=== PATIENT | female | born 1995 | race Caucasian/White ===

== ENCOUNTER 2016-09-04 16:44 | Emergency (ER) | payer MEDICAID ==
[~2016-09-04] VITALS: Ht 154.9 cm; Wt 50.0 kg
[2016-09-04 16:46] VITALS: BP 106/69; PULSE 90; RESP 16; TEMP 98.8; O2SAT 100
[2016-09-04] MEDS ORDERED: ONDANSETRON HCL 4 MG/2 ML VIAL IVP ONE (17:15)
--- NOTE | 2016-09-04 17:18 | PD ---
HPI Chief Complaint: Abdominal Pain Time Seen by Provider: 17:08 Travel History International Travel<30 days: No Contact w/Intl Traveler<30days: No Traveled to known affect area: No History of Present Illness HPI 20-year-old female currently 15 weeks 5 days based on ultrasound 3 weeks ago. She presents for evaluation of pelvic cramping. She reports that 1 week ago she was at work and a coworker actually turned with a box that was filled with cardboard and the corner of the box hit her suprapubic region. She reports that she developed cramping shortly thereafter. The next day she had 4 episodes of vomiting. She called her REAL ESTATE PROCESSOR and rest was recommended. She felt better but then today she developed some cramping again which prompted evaluation. She endorses some nausea with 1 episode of vomiting today. Denies any vaginal bleeding, fevers or chills, diarrhea or constipation. Denies dysuria, flank pain, hematuria. No other complaints. PFSH Past Medical History Medical History: Denies Significant Hx Diminished Hearing: No Tetanus Vaccination: < 5 Years Influenza Vaccination: No ?: LMP: : 3 Para: 2 Miscarriage: 0 : 0 Past Surgical History Surgical History: No Previous Surgery Social History Alcohol Use: No Tobacco Use: Yes (1/2 pack per day) Substance Use: No Allergies-Medications (Allergen,Severity, Reaction): Coded Allergies: No Known Allergies (Unverified , 09/04/16) Reported Meds & Prescriptions Reported Meds & Active Scripts Active Macrobid (Nitrofurantoin Monoh/Nitrofur Macro) 100 Mg Cap 100 Mg PO BID 7 Days Review of Systems Except as stated in HPI: all other systems reviewed are Neg Physical Exam Narrative GENERAL: Pleasant well-developed well-nourished female in no acute distress SKIN: Warm and dry. HEAD: Atraumatic. Normocephalic. EYES: Pupils equal and round. No scleral icterus. No injection or drainage. ENT: No nasal bleeding or discharge. Mucous membranes pink and moist. NECK: Trachea midline. No JVD. CARDIOVASCULAR: Regular rate and rhythm. No murmur appreciated. RESPIRATORY: No accessory muscle use. Clear to auscultation. Breath sounds equal bilaterally. GASTROINTESTINAL: Abdomen soft, mild suprapubic tenderness without guarding. MUSCULOSKELETAL: No obvious deformities. NEUROLOGICAL: Awake and alert. No obvious cranial nerve deficits. Motor grossly within normal limits. Normal speech. Data Data Last Documented VS Vital Signs Date Time Temp Pulse Resp B/P Pulse Ox O2 Delivery O2 Flow Rate FiO2 09/04/16 17:06 16 09/04/16 16:46 98.8 90 106/69 100 Room Air Orders Complete Blood Count With Diff (09/04/16 17:08) Comprehensive Metabolic Panel (09/04/16 17:08) Urinalysis - C+S If Indicated (09/04/16 17:08) Ondansetron Inj (Zofran Inj) (09/04/16 17:15) Ed Poc Ultrasound (09/04/16 ) Urine Culture (09/04/16 17:26) Labs Laboratory Tests Test 09/04/16 09/04/16 17:18 17:26 White Blood Count 10.6 TH/MM3 Red Blood Count 3.68 MIL/MM3 Hemoglobin 11.0 GM/DL Hematocrit 31.0 % Mean Corpuscular Volume 84.1 FL Mean Corpuscular Hemoglobin 29.9 PG Mean Corpuscular Hemoglobin 35.5 % Concent Red Cell Distribution Width 13.5 % Platelet Count 275 TH/MM3 Mean Platelet Volume 7.8 FL Neutrophils (%) (Auto) 67.5 % Lymphocytes (%) (Auto) 20.5 % Monocytes (%) (Auto) 7.4 % Eosinophils (%) (Auto) 4.2 % Basophils (%) (Auto) 0.4 % Neutrophils # (Auto) 7.2 TH/MM3 Lymphocytes # (Auto) 2.2 TH/MM3 Monocytes # (Auto) 0.8 TH/MM3 Eosinophils # (Auto) 0.4 TH/MM3 Basophils # (Auto) 0.0 TH/MM3 CBC Comment DIFF FINAL Differential Comment Sodium Level 139 MEQ/L Potassium Level 4.1 MEQ/L Chloride Level 106 MEQ/L Carbon Dioxide Level 24.1 MEQ/L Anion Gap 9 MEQ/L Blood Urea Nitrogen 7 MG/DL Creatinine 0.44 MG/DL Estimat Glomerular Filtration 179 ML/MIN Rate Random Glucose 82 MG/DL Calcium Level 8.9 MG/DL Total Bilirubin 0.1 MG/DL Aspartate Amino Transf 11 U/L (AST/SGOT) Alanine Aminotransferase 14 U/L (ALT/SGPT) Alkaline Phosphatase 71 U/L Total Protein 7.0 GM/DL Albumin 3.6 GM/DL Urine Color YELLOW Urine Turbidity HAZY Urine pH 5.5 Urine Specific [place] 1.013 Urine Protein NEG mg/dL Urine Glucose (UA) NEG mg/dL Urine Ketones NEG mg/dL Urine Occult Blood SMALL Urine Nitrite NEG Urine Bilirubin NEG Urine Urobilinogen LESS THAN 2.0 MG/DL Urine Leukocyte Esterase LARGE Urine RBC 7 /hpf Urine WBC 11 /hpf Urine Squamous Epithelial 25 /hpf Cells Urine Bacteria RARE /hpf Urine Mucus FEW /lpf Microscopic Urinalysis Comment CULTURE INDICATED MDM Medical Decision Making Medical Screen Exam Complete: Yes Emergency Medical Condition: Yes Medical Record Reviewed: Yes Differential Diagnosis Round ligament pain, placental abruption, abdominal contusion, cystitis, abdominal wall hematoma Narrative Course 20-year-old female with pelvic cramping, 15 weeks 5 days based on ultrasound. Physical examination is reassuring, minimal suprapubic discomfort to palpation, well-appearing G urine assured with bedside ultrasound, heart tones 150. Positive movements on ultrasound. The patient was given Zofran for nausea. Basic lab work and urinalysis were ordered and urinalysis reveals some bacteria, 11 WBCs with some contamination as there are 25 squamous epithelial cells. The patient will be treated for bacteriuria in with Macrobid. She is stable for discharge and outpatient follow-up with her REAL ESTATE PROCESSOR. She has an appointment in 2 days with her REAL ESTATE PROCESSOR. Diagnosis Primary Impression: Abdominal pain Qualified Code: R10.30 - Lower abdominal pain Additional Impression: Asymptomatic bacteriuria during Additional Instructions: Medication as prescribed. Follow-up with your REAL ESTATE PROCESSOR. Return for new or worsening symptoms. Med/Other Pt SpecificInfo: Prescription(s) given Scripts Nitrofurantoin Monohydrate Macrocrystals (Macrobid)100 Mg [id number] Mg PO BID 7 Days Ref 0 Prov:Priya Strong MD 09/04/16 Disposition: 01 DISCHARGE HOME Condition: Stable Dao [place] Sep 04, 2016 17:18
--- NOTE | 2016-09-04 17:20 | PD ---
Physical Exam Date Seen by Provider: Sep 04, 2016 Narrative I, Dr. Strong, have reviewed the advance practice practitioner's documentation and am in agreement, met with the patient face to face, made the diagnosis, and the medical decision making was done by me. *My assessment and Findings: This patient is about 15-1/2 weeks since with some cramping. Emergency Department Pelvic ultrasound was performed with patient consent. The curvilinear probe was used in the transverse and sagittal views within the suprapubic region revealing + intrauterine . heart rate was 150. Data Data Last Documented VS Vital Signs Date Time Temp Pulse Resp B/P Pulse Ox O2 Delivery O2 Flow Rate FiO2 09/04/16 17:06 16 09/04/16 16:46 98.8 90 106/69 100 Room Air Orders Complete Blood Count With Diff (09/04/16 17:08) Comprehensive Metabolic Panel (09/04/16 17:08) Urinalysis - C+S If Indicated (09/04/16 17:08) Ondansetron Inj (Zofran Inj) (09/04/16 17:15) Ed Poc Ultrasound (09/04/16 ) MDM Supervised Visit with JOSIANE: Yes Scripts No Active Prescriptions or Reported Meds Priya Strong MD Sep 04, 2016 17:20
[2016-09-04 17:37] LABS: AUTOMATED NEUTROPHIL # 7.2 TH/MM3 (1.8-7.7); BASOPHIL % 0.4 % (0.0-2.0); EOSINOPHIL # 0.4 TH/MM3 (0-0.4); EOSINOPHIL % 4.2 % (0.0-4.0); HEMO FLAGS DIFF FINAL; LYMPH % 20.5 % (9.0-44.0); LYMPHOCYTE # 2.2 TH/MM3 (1.0-4.8); MEAN CELL VOLUME 84.1 FL (80.0-100.0); MEAN CORPUSCULAR HEMOGLOBIN 29.9 PG (27.0-34.0); MEAN CORPUSCULAR HGB CONC 35.5 % (32.0-36.0); MONO % 7.4 % (0.0-8.0); NEUT % 67.5 % (16.0-70.0); PLATELET COUNT 275 TH/MM3 (150-450); RED BLOOD COUNT 3.68 MIL/MM3 (4.00-5.30); RED CELL DISTRIBUTION WIDTH 13.5 % (11.6-17.2); WHITE BLOOD COUNT 10.6 TH/MM3 (4.0-11.0)
[2016-09-04 17:41] LABS: BACTERIA, URINE RARE /hpf; BLOOD, URINE SMALL (NEG); COMMENT (UR) CULTURE INDICATED; CULTURE IF INDICATED CULTURE INDICATED; GLUCOSE,URINE NEG (NEG); KETONE, URINE NEG (NEG); MUCUS URINE FEW /lpf (OCC); NITRITE,URINE NEG (NEG); PH, URINE 5.5 (5.0-8.5); SQUAMOUS EPITHELIAL CELL URINE 25 /hpf (0-5); URINE COLOR YELLOW (YELLW/STRAW)
[2016-09-04 17:54] LABS: ALT (GPT) 14 U/L (10-53); ANION GAP 9 MEQ/L (5-15); AST (GOT) 11 U/L (15-37); BICARBONATE 24.1 MEQ/L (21.0-32.0); BLOOD UREA NITROGEN 7 MG/DL (7-18); CHLORIDE 106 MEQ/L (98-107); GLOMERULAR FILTRATION RATE 179 ML/MIN (>89); POTASSIUM 4.1 MEQ/L (3.5-5.1); SODIUM (NA) 139 MEQ/L (136-145)
[2016-09-04 17:56] LABS: ALKALINE PHOSPHATASE 71 U/L (45-117); TOTAL BILIRUBIN ADULT 0.1 MG/DL (0.2-1.0)
[2016-09-04] MEDS ORDERED: MACR100C2 PO (17:56)
== END 2016-09-04 18:28 | disposition home or self-care (01) ==
LOC: NEPE 16:44
DX: O23.31 Infections of other parts of urinary tract in pregnancy, first trimester (principal); O26.891 Other specified pregnancy related conditions, first trimester; B96.89 Other specified bacterial agents as the cause of diseases classified elsewhere; Z3A.15 15 weeks gestation of pregnancy
CPT/HCPCS: 80053; 81001; 85025; 87086; 96374; 99284; J2405

== ENCOUNTER → 2016-12-02 | Outpatient (CLI) | payer MEDICAID ==
[~2016-12-02] MED LIST: DOCO200C PO; IBUP-232 PO; MACR100C2 PO
== END ==
LOC: CLAB 10:05
PROVIDERS: ATTEND Obstetrics & Gynecology
DX: O36.0130 Maternal care for anti-D [Rh] antibodies, third trimester, not applicable or unspecified (principal); Z67.41 Type O blood, Rh negative
CPT/HCPCS: 36415; 86850; 86900; 86901; 90384; 96372; J2790

== ENCOUNTER 2016-12-13 00:39 | Emergency (ER) | payer MEDICAID ==
[~2016-12-13] VITALS: Ht 154.9 cm; Wt 60.0 kg
[~2016-12-13 00:39] MED LIST changes: -DOCO200C PO; -IBUP-232 PO
[2016-12-13 00:43] VITALS: BP 117/88; PULSE 93; RESP 16; TEMP 98; O2SAT 100
[2016-12-13] MEDS ORDERED: DOCO200C PO (01:31)
[2016-12-13 02:07] LABS: AUTOMATED NEUTROPHIL # 8.6 TH/MM3 (1.8-7.7); BASOPHIL # 0.1 TH/MM3 (0-0.2); BASOPHIL % 0.6 % (0.0-2.0); EOSINOPHIL # 0.5 TH/MM3 (0-0.4); EOSINOPHIL % 3.5 % (0.0-4.0); HEMATOCRIT 31.9 % (35.0-46.0); HEMO FLAGS DIFF FINAL; LYMPH % 23.3 % (9.0-44.0); LYMPHOCYTE # 3.1 TH/MM3 (1.0-4.8); MEAN CELL VOLUME 87.1 FL (80.0-100.0); MEAN CORPUSCULAR HEMOGLOBIN 29.7 PG (27.0-34.0); MEAN CORPUSCULAR HGB CONC 34.1 % (32.0-36.0); MONO % 8.1 % (0.0-8.0); NEUT % 64.5 % (16.0-70.0); PLATELET COUNT 255 TH/MM3 (150-450); RED BLOOD COUNT 3.66 MIL/MM3 (4.00-5.30); RED CELL DISTRIBUTION WIDTH 13.1 % (11.6-17.2); WHITE BLOOD COUNT 13.3 TH/MM3 (4.0-11.0)
[2016-12-13 02:32] LABS: BACTERIA, URINE OCC /hpf; BLOOD, URINE TRACE (NEG); COMMENT (UR) CULT NOT INDICATED; CULTURE IF INDICATED CULT NOT INDICATED; GLUCOSE,URINE NEG (NEG); KETONE, URINE NEG (NEG); MUCUS URINE MOD /lpf (OCC); NITRITE,URINE NEG (NEG); RENAL EPITHELIAL CELLS <1 /hpf; SQUAMOUS EPITHELIAL CELL URINE 18 /hpf (0-5); TRANSITIONAL EPI CELLS, URINE <1 /hpf; URINE COLOR YELLOW (YELLW/STRAW)
[2016-12-13 02:38] LABS: BICARBONATE 24.4 MEQ/L (21.0-32.0); POTASSIUM 3.6 MEQ/L (3.5-5.1)
--- NOTE | 2016-12-13 02:49 | PD ---
HPI Chief Complaint: Pain: Acute or Chronic Time Seen by Provider: 01:45 Travel History International Travel<30 days: No Contact w/Intl Traveler<30days: No Traveled to known affect area: No History of Present Illness HPI The patient is a 21 year old female at 30 weeks gestation who presents to the [facility] emergency department with a history of right calf pain that she reports began when she awakened on Monday night with a charley horse. She reports that the pain never went away. She reports that just touching the area hurts her right calf. She denies having any swelling or redness associated with this. She denies having any prior history of blood clots. She does however unfortunately smoke a half a pack of cigarettes per day. The patient reports that she has been feeling the baby move well. Her DIRECTOR BUSINESS DEVELOPMENT is at the [employer]. Review of systems, the patient denies any recent fevers, cough, congestion, neck pain, chest pain, shortness of breath, abdominal pain, vomiting, diarrhea, urinary symptoms, vaginal bleeding, or neurologic symptoms. [facility] Past Medical History Narrative Medical The patient's past medical history is significant for none. Medical History: Denies Significant Hx Diminished Hearing: No ?: : 3 Para: 2 Miscarriage: 0 : 0 Past Surgical History Narrative Surgical The patient's past surgical history is reportedly none. Surgical History: No Previous Surgery Social History Alcohol Use: No Tobacco Use: Yes (1/2 pack per day) Substance Use: No Allergies-Medications (Allergen,Severity, Reaction): Coded Allergies: No Known Allergies (Unverified , 12/13/16) Reported Meds & Prescriptions Reported Meds & Active Scripts Active Reported Dha (Docosahexaenoic Acid) 200 Mg Cap PO DAILY Review of Systems Except as stated in HPI: all other systems reviewed are Neg General / Constitutional: No: Fever Eyes: No: Visual changes HENT: No: Headaches Cardiovascular: No: Chest Pain or Discomfort Respiratory: No: Shortness of Breath Gastrointestinal: No: Abdominal Pain Genitourinary: No: Dysuria Musculoskeletal: Positive: Myalgias, Pain Skin: No Rash Neurologic: No: Weakness Psychiatric: No: Depression Endocrine: No: Polydipsia Hematologic/Lymphatic: No: Easy Bruising Physical Exam Narrative General: The patient is a well-developed well-nourished female in no acute distress. Head and Neck exam: Head is normocephalic atraumatic. Eyes: EOMI, pupils are equal round and reactive to light. Nose: Midline septum with pink mucous membranes Mouth: Dentition unremarkable. Moist mucus membranes. Posterior oropharynx is not erythematous. No tonsillar hypertrophy. Uvula midline. Airway patent. Neck: No palpable lymphadenopathy. No nuchal rigidity. No thyromegaly. Cardiovascular: Regular rate and rhythm without murmurs, gallops, or rubs. Lungs: Clear to auscultation bilaterally. No wheezes, rhonchi, or rales. Abdomen: Soft, distention noted related to with the fundus well above the umbilicus without any tenderness on palpation of all 4 quadrants of the abdomen , no palpable contractions. No guarding, rebound, or rigidity. Normal bowel sounds are audible Extremities: No clubbing, cyanosis, or edema. 2+ pulses in all 4 extremities. The patient has right calf tenderness on palpation. The patient has a positive Homans sign on the right side. She has less than 3 second capillary refill of her digits in bilateral feet. Back: No spinous process tenderness to palpation. No costovertebral angle tenderness to palpation. Neurologic Exam: Grossly nonfocal. Skin Exam: No rash noted. Intact skin that is warm and dry. Data Data Last Documented VS Vital Signs Date Time Temp Pulse Resp B/P Pulse Ox O2 Delivery O2 Flow Rate FiO2 12/13/16 01:24 93 16 12/13/16 00:43 98.0 117/88 100 Room Air Orders Us Leg Venous Doppler (12/13/16 01:45) Complete Blood Count With Diff (12/13/16:46) Basic Metabolic Panel (Bmp) (12/13/16:46) Urinalysis - C+S If Indicated (12/13/16:46) Magnesium (Mg) (12/13/16:46) Iv Access Insert/Monitor (12/13/16:46) Ecg Monitoring (12/13/16:46) Oximetry (12/13/16:46) Labs Laboratory Tests Test 12/13/16 02:00 White Blood Count 13.3 TH/MM3 Red Blood Count 3.66 MIL/MM3 Hemoglobin 10.9 GM/DL Hematocrit 31.9 % Mean Corpuscular Volume 87.1 FL Mean Corpuscular Hemoglobin 29.7 PG Mean Corpuscular Hemoglobin 34.1 % Concent Red Cell Distribution Width 13.1 % Platelet Count 255 TH/MM3 Mean Platelet Volume 7.9 FL Neutrophils (%) (Auto) 64.5 % Lymphocytes (%) (Auto) 23.3 % Monocytes (%) (Auto) 8.1 % Eosinophils (%) (Auto) 3.5 % Basophils (%) (Auto) 0.6 % Neutrophils # (Auto) 8.6 TH/MM3 Lymphocytes # (Auto) 3.1 TH/MM3 Monocytes # (Auto) 1.1 TH/MM3 Eosinophils # (Auto) 0.5 TH/MM3 Basophils # (Auto) 0.1 TH/MM3 CBC Comment DIFF FINAL Differential Comment Urine Color YELLOW Urine Turbidity HAZY Urine pH 6.0 Urine Specific [place] 1.022 Urine Protein TRACE mg/dL Urine Glucose (UA) NEG mg/dL Urine Ketones NEG mg/dL Urine Occult Blood TRACE Urine Nitrite NEG Urine Bilirubin NEG Urine Urobilinogen LESS THAN 2.0 MG/DL Urine Leukocyte Esterase LARGE Urine RBC 8 /hpf Urine WBC 8 /hpf Urine Squamous Epithelial 18 /hpf Cells Urine Transitional Epithelial <1 /hpf Cells Urine Renal Epithelial Cells <1 /hpf Urine Bacteria OCC /hpf Urine Mucus MOD /lpf Microscopic Urinalysis Comment CULT NOT INDICATED Sodium Level 140 MEQ/L Potassium Level 3.6 MEQ/L Chloride Level 106 MEQ/L Carbon Dioxide Level 24.4 MEQ/L Anion Gap 10 MEQ/L Blood Urea Nitrogen 4 MG/DL Creatinine 0.42 MG/DL Estimat Glomerular Filtration 187 ML/MIN Rate Random Glucose 79 MG/DL Calcium Level 8.6 MG/DL Magnesium Level 2.0 MG/DL [facility] Medical Decision Making Medical Screen Exam Complete: Yes Emergency Medical Condition: Yes Medical Record Reviewed: Yes Interpretation(s) Last Impressions Lower Extremity Ultrasound 12/13/16 0145 Signed Impressions: Service Date/Time: Tuesday, December 13, 2016 02:07 - CONCLUSION: No DVT in the right leg. Joseph Diaz MD Differential Diagnosis Musculoskeletal strain, versus DVT, versus Achilles tendon rupture Narrative Course During the course of the patients emergency department visit, the patients history, examination, and differential diagnosis were reviewed with the patient. The patient had IV access obtained and blood work sent for analysis. The patient was placed on a behavioral health care manager with oximetry and blood pressure monitoring. An ultrasound of the right lower extremity was ordered. The patient was offered Tylenol for pain, however she reports that she is comfortable at this time. The patients laboratory studies were reviewed and remarkable for a white count of 13.3, hemoglobin 10.9, platelets 255 with 8.1 monocytes, BMP is unremarkable , urinalysis shows large leukocyte esterase 8 rbc's wbc's 8, 18 squamous epithelial cells, occasional bacteria. The patient will be treated for bacteriuria with Macrobid. Radiology studies were reviewed and remarkable for an ultrasound that reveals no evidence of DVT. The patient is instructed regarding the importance of following up with her OB/ [employer] for reexamination. The patient's symptoms are likely related to muscle strain in the calf related to a spasm. The patient is resting comfortably and feels better, is alert and in no distress. The patients results and examination findings were discussed with the patient. The repeat examination is unremarkable and benign. The history, exam, diagnostic testing, and current condition do not suggest any significant pathology to warrant further testing, continued ED treatment, admission, or surgical evaluation at this point. The vital signs have been stable. The patient does not have uncontrollable pain, intractable vomiting, or other significant symptoms. The patient's condition is stable and appropriate for discharge. The patient will pursue further outpatient evaluation with a primary care physician or other designated or consulting physician as indicated in the discharge instructions. The patient expressed understanding and was agreeable with this plan. Diagnosis Primary Impression: Asymptomatic bacteriuria during Additional Impressions: Pain of right calf Muscle strain Referrals: Housekeeping Room Inspector 3 days Patient Instructions: General Instructions, Muscle Strain (ED), Urinary Tract Infection in (ED) Additional Instructions: The patient was instructed to take Tylenol as needed for discomfort as written on the package. Med/Other Pt SpecificInfo: Prescription(s) given Scripts Nitrofurantoin Monohydrate Macrocrystals (Macrobid)100 Mg [id number] Mg PO BID #20 CAP Ref 0 Prov:Paulette Cannon MD 12/13/16 Disposition: 01 DISCHARGE HOME Condition: Stable Paulette Cannon MD Dec 13, 2016 02:49
--- NOTE | 2016-12-13 03:04 | RADRPT ---
EXAM DATE/TIME: 12/13/2016 02:07 [place] COMPARISON: No previous studies available for comparison. INDICATIONS : Right leg pain. MEDICAL HISTORY : Right leg pain. SURGICAL HISTORY : None. ENCOUNTER: Initial ACUITY: 2 day PAIN SCORE: 7/10 LOCATION: Right leg. TECHNIQUE: Venous ultrasound of the leg was performed from the inguinal ligament to the proximal calf. Real-obdulio e, color Doppler and spectral tracing, compression and augmentation techniques were used. FINDINGS: There is normal compressibility of the deep venous system from the inguinal region to the proximal ca lf. No echogenic clot is seen in the lumen of the common femoral, femoral, popliteal, and posterior tibial veins. There is a normal response of the venous system to proximal and distal augmentation an d respiration. CONCLUSION: No DVT in the right leg. Joseph Diaz MD on December 13, 2016 at 3:03 Board Certified Radiologist. This report was verified electronically.
[2016-12-13] MEDS ORDERED: MACR100C2 PO (04:13)
== END 2016-12-13 06:01 | disposition home or self-care (01) ==
LOC: NEPC 00:39
DX: O26.893 Other specified pregnancy related conditions, third trimester (principal); R82.71 Bacteriuria; M79.661 Pain in right lower leg; F17.210 Nicotine dependence, cigarettes, uncomplicated
CPT/HCPCS: 80048; 81001; 83735; 85025; 93971

== ENCOUNTER → 2016-12-20 | Outpatient (CLI) | payer MEDICAID ==
[~2016-12-20] MED LIST changes: +DOCO200C PO; +IBUP-232 PO
== END ==
LOC: HPND 12:41
PROVIDERS: ATTEND Obstetrics & Gynecology
DX: O35.1XX0 Maternal care for (suspected) chromosomal abnormality in fetus, not applicable or unspecified (principal)
CPT/HCPCS: 76811

== ENCOUNTER → 2017-01-20 | Outpatient (CLI) | payer MEDICAID | LOC: HPND 09:52 | PROVIDERS: ATTEND Obstetrics & Gynecology | DX: O35.8XX0 Maternal care for other (suspected) fetal abnormality and damage, not applicable or unspecified (principal); O36.5920 Maternal care for other known or suspected poor fetal growth, second trimester, not applicable or unspecified; Z3A.35 35 weeks gestation of pregnancy | CPT/HCPCS: 76816 ==

== ENCOUNTER 2017-02-06 15:57 | Emergency (ER) | payer MEDICAID ==
[~2017-02-06] VITALS: Ht 154.9 cm; Wt 57.6 kg
[~2017-02-06 15:57] MED LIST changes: -IBUP-232 PO
--- NOTE | 2017-02-06 16:48 | PD ---
HPI Chief Complaint contractions Date Seen: Feb 06, 2017 Time Seen: 16:40 Travel History International Travel<30 Days: No Contact w/Intl Traveler<30Days: No Known Affected Area: No History of Present Illness HPI Pt is a 21 y/o with iup at 38 wks who presents with c/o contractions. PT states that around 2:30 pm her abdomen got tight and she feels like it stayed tight for a long time. She is also intermittently feeling sharp suprapubic pain , 4-5x per hour. Pt denies vb, lof. +FM Para: 2 : 3 History Past Medical History Medical History: Denies Significant Hx Obstetric History Obstetric History OB: 2010 FTSVD 2013 FTSVD Past Surgical History Surgical History: No Previous Surgery Family History Family History: Negative Social History Alcohol Use: No Tobacco Use: Yes (1/2 ppd) Substance Abuse: No Allergies-Medications (Allergen,Severity, Reaction): Coded Allergies: No Known Allergies (Unverified , 12/13/16) Home Meds Reported Medications Docosahexaenoic Acid ( Dha)200 Mg Cap Po Daily 12/13/16 Discontinued Scripts Nitrofurantoin Monohydrate Macrocrystals (Macrobid)100 Mg [id number] Mg PO BID #20 CAP Ref 0 Prov:Paulette Cannon MD 12/13/16 Review of Systems General / Constitutional: No: Fever, Weight Gain, Weight Loss, Chills, Other Eyes: No: Diploplia, Blurred Vision, Visual changes, Pain, Photophobia, Other HENT: No: Headaches, Vertigo, Dental Difficulties, Lightheadedness, Other Cardiovascular: No: Irregular Rhythm, Chest Pain or Discomfort, Palpitations, Tachycardia, Syncope, Varicosities, Edema, Cyanosis, Other Respiratory: No: Cough, Short of Breath, Wheezing, Other Gastrointestinal: No: Nausea, Vomiting, Diarrhea, Abdominal Pain, Hematemesis, Hematochezia, Constipation, Changes in Bowel Habits, Indigestion, Loss of Appetite, Other Genitourinary: No: Urgency, Frequency, Dysuria, Nocturia, Hematuria, Decreased Urinary Output, Oliguria, Hesitancy, Dribbling, Incontinence, Pelvic Pain, Dyspareunia, Discharge, Menorrhagia, Vaginal Bleeding, Other Musculoskeletal: No: Limited ROM, Weakness, Cramping, Edema, Pain, Other Skin: No Rash, No Itching, No Dryness, No Lumps, No Change in Pigmentation, No Change in Nails, No Alopecia, No Lesions, No Breast Lumps, No Breast Tenderness , No Breast Swelling, No Other Neurologic: No: Weakness, Dizziness, Syncope, Focal Abnormalities, Coordination Problem, Headache, Slurred Speech, Seizures, Other Psychiatric: No: Anxiety, Depression, Suicidal Ideations, Disorder of Thought, Mood Disorder, Substance Abuse, Homicidal Ideation, Other Endocrine: No: Heat Intolerance, Cold Intolerance, Polydipsia, Polyuria, Other Hematologic/Lymphatic: No Easy Bruising, No Lymph Node Enlargement, No Other Physical Exam 107/69, 93, 18, 98.1 Narrative GENERAL: Well-nourished, well-developed patient. SKIN: Warm and dry. HEAD: Normocephalic and atraumatic. EYES: No scleral icterus. No injection or drainage. ENT: No nasal drainage noted. Mucous membranes pink. Airway patent. NECK: Supple, trachea midline. No JVD. CARDIOVASCULAR: Regular rate and rhythm without murmurs, gallops, or rubs. RESPIRATORY: Breath sounds equal bilaterally. No accessory muscle use. ABDOMEN/GI: Abdomen soft, non-tender, bowel sounds present, no rebound, no guarding Gravid GENITOURINARY: External Genitalia: intact and normal in appearance BUS glands: [wnl] Cervix: posterior Dilatation: 1 Effacement: 25 Station: -3 Presentation: [facility] Membranes: intact Uterine Contractions: q 3 (small) FHT's: Category: 1 Baseline: 130s Reactive: yes Variability: mod Decels: no EXTREMITIES: No cyanosis or edema. BACK: Nontender without obvious deformity. No CVA tenderness. NEUROLOGICAL: Awake and alert. Motor and sensory grossly within normal limits. Five out of 5 muscle strength in all muscle groups. Normal speech. Data Data Vital Signs Reviewed: Yes MDM Medical Record Reviewed: Yes Narrative Course / MDM 21 y/o with IUP at 38 wks who presents for evaluation of labor not in active labor at this time labor precautions/fkc reviewed Diagnosis Diagnosis: Primary Impression: 38 weeks gestation of Additional Impression: False labor after 37 completed weeks of gestation Disposition: 01 DISCHARGE HOME Condition: Stable Riya Waters MD Feb 06, 2017 16:48
== END 2017-02-06 17:18 | disposition home or self-care (01) ==
LOC: HOBED 15:57
DX: O47.9 False labor, unspecified (principal); F17.210 Nicotine dependence, cigarettes, uncomplicated; Z3A.38 38 weeks gestation of pregnancy
CPT/HCPCS: 99282

== ENCOUNTER 2017-02-12 17:57 | Inpatient (IN) | payer MEDICAID ==
[~2017-02-12 17:57] MED LIST changes: -MACR100C2 PO
[2017-02-12 18:15] VITALS: RESP 18; TEMP 98
[2017-02-12] MEDS ORDERED: LIDOCAINE HCL 1% 50 ML VIAL I-DERMAL PRN (18:30)
[2017-02-12] MEDS ORDERED: LIDOCAINE HCL 1% 50 ML VIAL INFIL PRN (18:30)
[2017-02-12] MEDS ORDERED: MINERAL OIL 10 ML VIAL TOPICAL PRN (18:30)
[2017-02-12] MEDS ORDERED: LACTATED RINGER'S 1000 ML BOLUS IV PRN (18:30)
[2017-02-12] MEDS ORDERED: DINOPROSTONE 10 MG INSERT - REMOVE AT 0600 VAGINAL ONE (18:30)
[2017-02-12] MEDS ORDERED: OXYTOCIN 30 UNITS 500ML PREMIX IV ONE (18:30)
[2017-02-12] MEDS ORDERED: CITRIC ACID-SODIUM CITRATE LIQ 30 ML UDC PO SCH (18:30)
[2017-02-12] MEDS ORDERED: NS 500 ML BOLUS IV PRN (18:30)
[2017-02-12] MEDS ORDERED: NS 1000 ML IV PRN (18:30)
[2017-02-12] MEDS: LACTATED RINGER'S 1000 ML IV SCH (18:36)
[2017-02-12 18:48] LABS: AUTOMATED NEUTROPHIL # 10.2 TH/MM3 (1.8-7.7); BASOPHIL # 0.1 TH/MM3 (0-0.2); BASOPHIL % 0.8 % (0.0-2.0); EOSINOPHIL # 0.2 TH/MM3 (0-0.4); EOSINOPHIL % 1.4 % (0.0-4.0); HEMATOCRIT 29.8 % (35.0-46.0); HEMO FLAGS DIFF FINAL; LYMPH % 16.1 % (9.0-44.0); LYMPHOCYTE # 2.3 TH/MM3 (1.0-4.8); MEAN CELL VOLUME 86.4 FL (80.0-100.0); MEAN CORPUSCULAR HEMOGLOBIN 28.9 PG (27.0-34.0); MEAN CORPUSCULAR HGB CONC 33.4 % (32.0-36.0); MONO % 8.8 % (0.0-8.0); NEUT % 72.9 % (16.0-70.0); PLATELET COUNT 274 TH/MM3 (150-450); RED BLOOD COUNT 3.45 MIL/MM3 (4.00-5.30)
[2017-02-12 19:01] VITALS: BP 108/65; PULSE 77
[2017-02-12 19:01] LABS: BACTERIA, URINE RARE /hpf; BLOOD, URINE NEG (NEG); COMMENT (UR) CULT NOT INDICATED; CULTURE IF INDICATED CULT NOT INDICATED; GLUCOSE,URINE NEG (NEG); KETONE, URINE NEG (NEG); NITRITE,URINE NEG (NEG); SQUAMOUS EPITHELIAL CELL URINE 4 /hpf (0-5); URINE COLOR LIGHT-YELLOW (YELLW/STRAW)
[2017-02-12 19:15] VITALS: RESP 18; TEMP 97.6
[2017-02-12 23:25] VITALS: BP 101/44; PULSE 91
[2017-02-12 23:30] VITALS: RESP 18; TEMP 98.5
[2017-02-13 03:33] VITALS: BP 119/63; PULSE 76
[2017-02-13 03:45] VITALS: RESP 18; TEMP 98.1
--- NOTE | 2017-02-13 09:09 | HHI.HP ---
HPI Chief Complaint iol for iugr Date Seen: Feb 13, 2017 Travel History International Travel<30 Days: No Contact w/Intl Traveler<30Days: No Known Affected Area: No History of Present Illness HPI 21 yo with iup at 39 wk admitted for iol for iugr, efw under 10% and AC under 2.5%. She had nl dopplers, BPP and NST in clinic. She received cervidil overnight. She now has ctx q 3-5 min. No lof, min bloody show. Does not want an epidural. Para: 2 : 3 History Past Medical History Narrative Medical Asthma Obstetric History Obstetric History 2 ftsvd Social History Alcohol Use: No Tobacco Use: Yes Substance Abuse: No Allergies-Medications (Allergen,Severity, Reaction): Coded Allergies: No Known Allergies (Unverified , 12/13/16) Home Meds Reported Medications Docosahexaenoic Acid ( Dha)200 Mg Cap Po Daily 12/13/16 Discontinued Scripts Nitrofurantoin Monohydrate Macrocrystals (Macrobid)100 Mg Aal668 Mg PO BID #20 CAP Ref 0 Prov:Paulette Cannon MD 12/13/16 Review of Systems General / Constitutional: No: Fever, Weight Gain, Chills, Other Eyes: No: Diploplia, Blurred Vision, Visual changes, Pain, Photophobia HENT: No: Headaches, Vertigo, Lightheadedness Cardiovascular: No: Irregular Rhythm, Chest Pain or Discomfort, Palpitations, Tachycardia, Syncope, Varicosities, Edema, Cyanosis Respiratory: No: Cough, Short of Breath, Other Gastrointestinal: No: Nausea, Vomiting, Diarrhea Genitourinary: No: Decreased Urinary Output, Oliguria Musculoskeletal: No: Limited ROM, Weakness, Cramping, Edema, Pain Skin: No Rash, No Itching, No Dryness, No Lumps, No Change in Pigmentation, No Change in Nails, No Alopecia, No Lesions Neurologic: No: Weakness, Dizziness, Syncope, Focal Abnormalities, Coordination Problem, Headache, Slurred Speech, Seizures Psychiatric: No: Depression, Suicidal Ideations, Homicidal Ideation Endocrine: No: Heat Intolerance, Cold Intolerance, Polydipsia, Polyuria, Other Physical Exam Vital Signs Date Time Temp Pulse Resp B/P Pulse Ox O2 Delivery O2 Flow Rate FiO2 02/13/17 03:45 18 02/13/17 03:45 98.1 02/13/17 03:33 76 119/63 02/12/17 23:30 98.5 18 02/12/17 23:25 91 101/44 02/12/17 19:15 18 02/12/17 19:15 97.6 02/12/17 19:01 77 108/65 02/12/17 18:15 98.0 18 Narrative GENERAL: Well-nourished, well-developed patient. SKIN: Warm and dry. HEAD: Normocephalic and atraumatic. EYES: No scleral icterus. No injection or drainage. ENT: No nasal drainage noted. Mucous membranes pink. Airway patent. NECK: Supple, trachea midline. No JVD. CARDIOVASCULAR: Regular rate and rhythm without murmurs, gallops, or rubs. RESPIRATORY: Breath sounds equal bilaterally. No accessory muscle use.. ABDOMEN/GI: Abdomen soft, non-tender, bowel sounds present, no rebound, no guarding Gravid to 36 weeks size Fundal Height: [-] GENITOURINARY: External Genitalia: intact and normal in appearance BUS glands: [-] Cervix: 3/50/-2, post medium consistency, AROM attempted, min fluid, pt not very tolerant of exam Presentation:ceph Membranes: Ruptured, min fluid Uterine Contractions:3-5 min FHT's: Category: I Baseline:130 Reactive: [-] Variability:mod Decels: [-] EXTREMITIES: No cyanosis or edema. BACK: Nontender without obvious deformity. No CVA tenderness. NEUROLOGICAL: Awake and alert. Motor and sensory grossly within normal limits. Five out of 5 muscle strength in all muscle groups. Normal speech. Data Data Vital Signs Reviewed: Yes Orders Admit To Inpatient (02/12/17 ) Diet Liquid (02/12/17 Dinner) Activity Oob Ad Marlyn (02/12/17 18:18) ^ Labor Induction (02/12/17 18:18) Lactated Ringer's 1000 Ml Inj (Lr 1000 M (02/12/17 18:30) Lactated Ringer's 1000 Ml Inj (Lr 1000 M (02/12/17 18:30) Sodium Chlorid 0.9% 500 Ml Inj (Ns 500 M (02/12/17 18:30) Sodium Chlor 0.9% 1000 Ml Inj (Ns 1000 M (02/12/17 18:30) Lidocaine 1% Inj (50 Ml) (Xylocaine 1% I (02/12/17 18:30) Citric Acid-Sodium Citrate Liq (Bicitra (02/12/17 18:30) Fentanyl Inj (Fentanyl Inj) (02/12/17 18:30) Fentanyl Inj (Fentanyl Inj) (02/12/17 18:30) Oxytocin 30 Units-500ml Premix (Pitocin (02/12/17 18:30) Lidocaine 1% Inj (50 Ml) (Xylocaine 1% I (02/12/17 18:30) Light Mineral Oil (Muri-Lube Oil) (02/12/17 18:30) Admit To Inpatient (02/12/17 ) Code Status (02/12/17:20) Admit To Inpatient (02/12/17 ) Vital Signs (Adult) .Per protocol (02/12/17 18:20) Heart (02/12/17 18:20) Amnioinfusion (02/12/17 18:20) Urinary Catheter Management .ONCE (02/12/17 18:20) Complete Blood Count With Diff (02/12/17 18:20) Hold Clot (02/12/17 18:20) Abo/Rh Blood Type (02/12/17:20) Urinalysis - C+S If Indicated (02/12/17 18:20) Resp Oxygen Non Rebreathe Mask (02/12/17 ) ^ Epidural / Intrathecal Infus (02/12/17 18:20) Specimen To Be Collected PRN (02/12/17 18:20) Dinoprostone Vag Insert (Cervidil Vag In (02/12/17 18:30) Labs Laboratory Tests Test 02/12/17 18:20 White Blood Count 14.0 Red Blood Count 3.45 Hemoglobin 10.0 Hematocrit 29.8 Mean Corpuscular Volume 86.4 Mean Corpuscular Hemoglobin 28.9 Mean Corpuscular Hemoglobin 33.4 Concent Red Cell Distribution Width 13.0 Platelet Count 274 Mean Platelet Volume 8.8 Neutrophils (%) (Auto) 72.9 Lymphocytes (%) (Auto) 16.1 Monocytes (%) (Auto) 8.8 Eosinophils (%) (Auto) 1.4 Basophils (%) (Auto) 0.8 Neutrophils # (Auto) 10.2 Lymphocytes # (Auto) 2.3 Monocytes # (Auto) 1.2 Eosinophils # (Auto) 0.2 Basophils # (Auto) 0.1 CBC Comment DIFF FINAL Differential Comment Urine Color LIGHT-YELLOW Urine Turbidity HAZY Urine pH 6.0 Urine Specific Douglas 1.004 Urine Protein NEG Urine Glucose (UA) NEG Urine Ketones NEG Urine Occult Blood NEG Urine Nitrite NEG Urine Bilirubin NEG Urine Urobilinogen LESS THAN 2.0 Urine Leukocyte Esterase LARGE Urine RBC 3 Urine WBC 3 Urine Squamous Epithelial 4 Cells Urine Bacteria RARE Microscopic Urinalysis Comment CULT NOT INDICATED Blood Type O NEGATIVE Band and Hold Assessment/Plan Problem List: (1) 38 weeks gestation of (2) IUGR (intrauterine growth restriction) affecting care of mother Assessment and Plan 21 yo with iup at 39 wk admitted for iol for iugr 1) IOL for iugr- s/p cervidil overnight. AROM, will start pit as needed. Discussed potential intolerance of labor with iugr; aware of potential need for cd if this occurs. 2) Asthma- albuterol inhaler prn 3) Tob use - 1/2 ppd, encourage cessation 4) Fetus Cat I tracing, EFW 5.5-6 pounds ( 10%, with AC less than 2.5%). - Prior EIF and echogenic bowel now resolved. - Right pyelectasis measuring between 4-6mm on office u/s. - Neg cfDNA, s/p MFM consultation. Swetha Dimas MD Feb 13, 2017 09:09
[2017-02-13] MEDS ORDERED: ALBUTEROL SULFATE 90 MCG/ACT HFA 8 GM INHALER INH PRN (09:15)
[2017-02-13] MEDS ORDERED: OXYTOCIN 30 UNITS-500ML PREMIX 500 ML IV SCH (09:15)
[2017-02-13] MEDS: LACTATED RINGER'S 1000 ML IV SCH (09:48)
--- NOTE | 2017-02-13 12:09 | PD.OB.DELI ---
Delivery Date: Feb 13, 2017 Anesthesia: None Episiotomy: None Vaginal Delivery: Normal Presentation: Occiput anterior Nuchal Cord: None Delayed cord clamping (45 sec): Yes Infant: Male One Minute : 9 Five Minute : 9 Weight: 6 lb 2 oz Placenta: Spontaneous delivery Laceration: No lacerations Additional Information ebl 200ml Swetha Dimas MD Feb 13, 2017 12:09
[2017-02-13] MEDS ORDERED: ALUMINUM/MAGNESIUM/SIMETH 30 ML CUP PO PRN (12:15)
[2017-02-13] MEDS ORDERED: SODIUM CHLORIDE 0.9% FLUSH 10 ML FLUSH IV FLUSH PRN (12:15)
[2017-02-13] MEDS ORDERED: WITCH HAZEL 50%/GLYCERIN 12.5% 40 PAD JAR TOPICAL PRN (12:15)
[2017-02-13] MEDS ORDERED: ACETAMINOPHEN 325 MG TAB PO PRN (12:15)
[2017-02-13] MEDS ORDERED: ZOLPIDEM TARTRATE 5 MG TAB PO PRN (12:15)
[2017-02-13] MEDS ORDERED: DOCUSATE SODIUM 50 MG/SENNA 8.6 MG TAB PO PRN (12:15)
[2017-02-13] MEDS ORDERED: ONDANSETRON ODT 4 MG TAB PO PRN (12:15)
[2017-02-13] MEDS ORDERED: oxyCODONE/ACETAMINOPHEN 5 MG/325 MG TAB PO PRN (12:15)
[2017-02-13] MEDS ORDERED: BENZOCAINE 20% TOPICAL SPRAY 60 ML CAN TOPICAL PRN (12:15)
[2017-02-13] MEDS ORDERED: IBUPROFEN 600 MG TAB PO PRN (12:15)
[2017-02-13 14:10] VITALS: BP 93/55; PULSE 61; RESP 16; TEMP 98.2
[2017-02-13] MEDS ORDERED: MEASLES, MUMPS, RUBELLA VACCINE 0.5 ML VIAL SQ ONE (16:00)
[2017-02-13] MEDS ORDERED: DIPHTH/TETANUS/ACEL PERTUSSIS (BOOSTER) 0.5 ML VIAL/PFS IM ONE (16:00)
[2017-02-13 19:21] VITALS: BP 110/68; PULSE 68; RESP 18; TEMP 98.5
[2017-02-13] MEDS ORDERED: SODIUM CHLORIDE 0.9% FLUSH 10 ML FLUSH IV FLUSH SCH (21:00)
--- NOTE | 2017-02-14 08:00 | HHI.OB ---
Subjective Post Day: 1 Remarks PPD#1, Doing well, desires dicharge,planning circ. as outpatient, Objective Vitals/I&O Vital Signs Date Time Temp Pulse Resp B/P Pulse Ox O2 Delivery O2 Flow Rate FiO2 02/13/17 19:21 98.5 68 18 110/68 02/13/17 14:10 98.2 61 16 93/55 Objective Remarks GENERAL: Well-nourished, well-developed patient. CARDIOVASCULAR: Regular rate and rhythm without murmurs, gallops, or rubs. RESPIRATORY: Breath sounds equal bilaterally. No accessory muscle use. ABDOMEN/GI: Abdomen soft, non-tender. Fundus: Firm, non-tender at umbilicus. GENITOURINARY: Light to moderate bleeding. EXTREMITIES: No cyanosis or edema, non-tender, without signs of DVT. Medications and IVs Current Medications Medications (Trade) Dose Ordered Sig/Dalton Route Start Time Stop Time Status Last Admin (NS Flush) 2 ml BID IV FLUSH 02/13/17 21:00 (NS Flush) 2 ml UNSCH PRN IV FLUSH 02/13/17 12:15 (Tylenol) 650 mg Q4H PRN PO 02/13/17 12:15 (Motrin) 600 mg Q6H PRN PO 02/13/17 12:15 02/14/17 02:43 (Percocet 5-325 Mg) 1 tab Q4H PRN PO 02/13/17 12:15 (Americaine 20% Top Spr) 1 spray Q4H PRN TOPICAL 02/13/17 12:15 (Tucks Pads) 1 applic QID PRN TOPICAL 02/13/17 12:15 (Ara-Colace) 2 tab Q12H PRN PO 02/13/17 12:15 (Ambien) 5 mg HS PRN PO 02/13/17 12:15 (Mag-Al Plus Susp Liq) 15 ml Q8H PRN PO 02/13/17 12:15 (Zofran Odt) 4 mg Q6H PRN PO 02/13/17 12:15 Assessment/Plan Problem List: (1) 38 weeks gestation of (2) IUGR (intrauterine growth restriction) affecting care of mother Assessment and Plan 21 yo , PPD#1, stable, GBS neg. ; Plan discharge if cleared for D/ C, Planning to have circumcision as outpatient. Abdirashid Millard MD Feb 14, 2017 08:00
[2017-02-14] MEDS ORDERED: IBUP-232 PO (08:01)
--- NOTE | 2017-02-14 08:02 | HHI.DS ---
Admission Date Feb 12, 2017 at 17:57 Admitting Diagnosis Diagnosis: Delivery Date: Feb 13, 2017 Vaginal Delivery: Normal Infant: Male Brief History 21 yo with iup at 39 wk admitted for iol for iugr, efw under 10% and AC under 2.5%. She had nl dopplers, BPP and NST in clinic. She received cervidil overnight. She now has ctx q 3-5 min. No lof, min bloody show. Does not want an epidural. Pt Condition on Discharge: Good Discharge Disposition: Discharge Home Discharge Instructions Diet Instructions: As Tolerated, No Restrictions Activities You Can Perform: Shower Only-No Bath Activities to Avoid: Driving for 24 hrs, Prolonged Standing, Strenuous Activity , Sexual Activity Abdirashid Bower MD Feb 14, 2017 08:02
== END 2017-02-14 14:35 | disposition home or self-care (01) | DRG 775 ==
LOC: H2EA 17:57 → H1EA 02-13 14:29
PROVIDERS: ADMIT Obstetrics & Gynecology; ATTEND Obstetrics & Gynecology
PROC: 3E0P7GC Introduction of Other Therapeutic Substance into Female Reproductive, Via Natural or Artificial Opening (ICD-10-PCS; 2017-02-12)
PROC: 10907ZC Drainage of Amniotic Fluid, Therapeutic from Products of Conception, Via Natural or Artificial Opening (ICD-10-PCS; 2017-02-12)
PROC: 10E0XZZ Delivery of Products of Conception, External Approach (ICD-10-PCS; principal; 2017-02-13)
DX: O36.5930 Maternal care for other known or suspected poor fetal growth, third trimester, not applicable or unspecified (principal); J45.909 Unspecified asthma, uncomplicated; O99.52 Diseases of the respiratory system complicating childbirth; O99.334 Smoking (tobacco) complicating childbirth; Z37.0 Single live birth; Z3A.38 38 weeks gestation of pregnancy
CPT/HCPCS: 59025; 81001; 85025; 86900; 86901; 90715; J2590; J3010; J7120